=== PATIENT | male | born 1980 | race Caucasian/White ===

== ENCOUNTER → 2018-01-30 | Outpatient (CLI) | payer BC ==
[2018-01-30 09:46] LABS: HEMATOCRIT 44.6 % (42.0-52.0); HEMOGLOBIN 15.3 g/dl (13.5-18.0); MEAN CELL VOLUME 88 fl (80.0-100.0); MEAN CORPUSCULAR HEMOGLOBIN 30 pg (27.0-31.0); MEAN CORPUSCULAR HGB CONC 34 g/dl (33.0-37.0); MEAN PLATELET VOLUME 9.7 fl (7.4-10.4); PLATELET COUNT 179 K/mm3 (130-400); RED BLOOD COUNT 5.09 M/mm3 (4.20-5.60); REDCELL DISTRIBUTION WIDTH-CV 12.5 % (11.5-14.5)
[2018-01-30 09:53] LABS: ALBUMIN 4.6 gm/dL (3.5-5.0); BILIRUBIN,TOTAL 0.6 mg/dL (0.0-1.0); CALCIUM 9.6 mg/dL (8.4-10.2); CREATININE, serum 1.03 mg/dL (0.66-1.25); POTASSIUM 4.2 mmol/L (3.4-5.0); TOTAL PROTEIN 7.8 gm/dL (6.4-8.2)
== END ==
LOC: COL.RAD 09:09
PROVIDERS: Physician Assistant Medical
DX: N20.0 Calculus of kidney (principal); M47.816 Spondylosis without myelopathy or radiculopathy, lumbar region; Z98.890 Other specified postprocedural states

== ENCOUNTER 2023-10-15 19:11 | Emergency (ER) | payer BC ==
[~2023-10-15] VITALS: Ht 182.9 cm; Wt 109.1 kg
[2023-10-15 19:15] VITALS: TEMP 98.1
[2023-10-15] MEDS ORDERED: NS 500 ML IV ONE (21:15)
[2023-10-15 21:34] LABS: BASO % 0.6 % (0.0-2.0); EOS # 0.1 K/mm3 (0.0-0.7); EOS % 1.6 % (0.0-4.0); GRAN # 3.5 K/mm3 (1.4-6.5); GRAN % 55.5 % (42.2-75.2); HEMATOCRIT 41.9 % (42.0-52.0); HEMOGLOBIN 14.2 g/dl (13.5-18.0); LYMPH # 2.1 K/mm3 (1.2-3.4); LYMPH % 33.8 % (20.0-51.0); MEAN CELL VOLUME 88 fl (80.0-100.0); MEAN CORPUSCULAR HEMOGLOBIN 30 pg (27-31); MEAN CORPUSCULAR HGB CONC 34 g/dl (33.0-37.0); MEAN PLATELET VOLUME 9.6 fl (7.4-10.4); MONO # 0.5 K/mm3 (0.1-0.6); MONO % 8.3 % (1.7-9.3); PLATELET COUNT 177 K/mm3 (130-400); RED BLOOD COUNT 4.75 M/mm3 (4.20-5.60); REDCELL DISTRIBUTION WIDTH-CV 12.9 % (11.5-14.5)
[2023-10-15 21:53] LABS: BILIRUBIN,TOTAL 0.4 mg/dL (0.2-1.2); CALCIUM 9.7 mg/dL (8.4-10.2); CREATININE, serum 1.37 mg/dL (0.72-1.25); POTASSIUM 4.1 mEq/L (3.5-4.5); TOTAL PROTEIN 7.1 g/dl (6.2-8.1)
[2023-10-15] MEDS ORDERED: Iohexol 300 - 100 ML VIAL IV ONE (22:35)
[2023-10-15] MEDS ORDERED: NS 50 ML IV SCH (22:36)
[2023-10-15] MEDS ORDERED: FLOMAX 0.40.4 MG/CAP PO (23:50)
[2023-10-15] MEDS ORDERED: VICODIN 5/300 PO (23:50)
[2023-10-16 00:11] VITALS: BP 158/96; PULSE 80
== END 2023-10-16 00:11 | disposition home or self-care (01) ==
LOC: COL.ER 19:11
PROVIDERS: Physician Assistant
DX: N20.0 Calculus of kidney (principal)
CPT/HCPCS: J7040; Q9967